=== PATIENT | female | born 1970 | race Caucasian/White ===

== ENCOUNTER → 2016-10-08 | Outpatient (CLI) | payer OTHER ==
[~2016-10-08] MED LIST: ALDACTONE PO; AMOXICILLIN PO; CELEBREX100 MG PO; CEPHALEXIN500 M1 PO; FLEXERIL10 MG PO; HYDROCODONE PO; KLONOPIN1 MG PO; METOPROLOL SUCC25 MG PO; ORAL GEL15 GM TOP; SYNTHROID PO; SYNTHROID25 MCG PO; VICODIN 5/500 T1 TAB PO; ZESTORETIC 10-1 EACH PO; ZOLOFT50 MG PO
--- NOTE | ~2016-10-08 | CR151 ---
[facility] A Service of [facility] & [facility] RADIOLOGY TEXT RESULTS PATIENT: ENID JEFFERSON LOCATION: [facility] : 70 UNIT #: [id number] AGE: [address]: Pavel Pozo MD SEX: F ORDER DR: [id number] [facility] [address] [place], [place] [address] [id number] O MR#: [id number] Acc #: [id number] NAME: ENID JEFFERSON : 1970 SEX: F STUDY DATE/TIME: 10/08/2016 15:28 UNIT: [facility] ROOM: STUDY DESCRIPTION: CR Hip Min 2 Views Rt Attending Physician: Pavel Pozo M.D. Referring Physician: Pavel Pozo M.D. Ordering Physician: Pavel Pozo M.D. Primary Care Physician: Wil Self M.D. MEDICAL IMAGING REPORT This report is preliminary unless electronic signature is present EXAM Right hip 2 views 10/08/2016 HISTORY Right hip pain with numbness and tingling in right hip for 1.5 years. No known injury. FINDINGS AP and oblique examination of the hip shows adequate mineralization of the bones and a normal anatomic relationship of the femoral head with the acetabulum. There are no hypertrophic changes, fractures, dislocation, or joint capsular distension. No radiopaque foreign body is present about the soft tissues of the hip. IMPRESSION Normal hip. Dictated by... Dwayne Nugent M.D. THIS IS AN ELECTRONICALLY VERIFIED REPORT Dwayne Nugent M.D. at 10/09/2016 5:04 PM KRT/to TD: 10/09/2016 11:19 JOB #: [id number] MEDICAL IMAGING REPORT Page 1 of 1 COPY
== END | disposition home or self-care (01) ==
LOC: CRAD 14:37
DX: M25.551 Pain in right hip (principal); R20.0 Anesthesia of skin; R20.2 Paresthesia of skin
CPT/HCPCS: 73502